=== PATIENT | female | born 1990 | race Caucasian/White ===

== ENCOUNTER 2020-03-20 16:56 | Emergency (ER) | payer OTHER, BC ==
[~2020-03-20] VITALS: Ht 76.2 cm; Wt 79.0 kg
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
[2020-03-20 17:50] LABS: BILIRUBIN,URINE NEGATIVE (NEG); CLARITY,URINE CLEAR; COLOR,URINE YELLOW; NITRITE,URINE NEGATIVE (NEG); PROTEIN,URINE 100 mg/dL (NEG-TRACE); UROBILINOGEN,URINE 0.2 mg/dL (0.2 mg/dL)
[2020-03-20 18:07] LABS: BACTERIA,URINE MODERATE /HPF (0-FEW)
[2020-03-20 18:09] LABS: RBC,URINE RARE /HPF (0-2)
[2020-03-20 19:40] VITALS: BP 126/86
== END 2020-03-20 19:42 | disposition home or self-care (01) ==
LOC: ER 16:56
DX: O26.892 Other specified pregnancy related conditions, second trimester (principal); S09.8XXA Other specified injuries of head, initial encounter; M54.2 Cervicalgia; Z3A.19 19 weeks gestation of pregnancy; V98.8XXA Other specified transport accidents, initial encounter; Y93.89 Activity, other specified; Y92.488 Other paved roadways as the place of occurrence of the external cause; Y99.8 Other external cause status
CPT/HCPCS: 36415; 76815; 81001; 81025; 86850; 86900; 86901; 87086; 99284